=== PATIENT | male | born 1955 | race Two or more races ===

== ENCOUNTER 2019-04-16 22:29 | Emergency (ER) | payer OTHER ==
--- NOTE | 2019-04-16 23:08 | ED ---
Palpitations / Dysrhythmia - HPI Summary HPI Summary: 63-year-old male presents with palpitations today. He states he was sitting at his desk when he developed the symptoms. it was 10 minutes. He states at that time he had slight dizziness. He states he felt a weird feeling in his ears. Also has some weakness in his arms and leg. His symptoms has since resolved. Denies any chest pressures or shortness of breath. No headache. No dizziness currently. Has not been sick recently. No cough. States had intermittent palpitations before but it is never lasted this long. Does have a family history of arrhythmias. no recent travel. no pain or swelling in his calf muscles. He has no medical conditions. He does not smoke. No drug use. - History of Current Complaint Chief Complaint: EDDysrhythmPalp Time Seen by Provider: 04/16/19 22:44 - Allergy/Home Medications Allergies/Adverse Reactions: Allergies Allergy/AdvReac Type Severity Reaction Status Date / Time No Known Allergies Allergy Verified 04/16/19 22:32 Home Medications: Home Medications NK [No Home Medications Reported] 04/17/19 [History Confirmed 04/17/19] PMH/Surg Hx/FS Hx/Imm Hx Endocrine/Hematology History: Denies: Hx Diabetes Cardiovascular History: Denies: Hx Hypertension, Hx Pacemaker/ICD History: Denies: Hx Dialysis, Hx Renal Disease Sensory History: Denies: Hx Hearing Aid Psychiatric History: Denies: Hx Panic Disorder Infectious Disease History: No Infectious Disease History: Denies: Hx Clostridium Difficile, Hx Hepatitis, Hx Human Immunodeficiency Virus (HIV), Hx of Known/Suspected MRSA, Hx Shingles, Hx Tuberculosis, Hx Known/ Suspected VRE, Hx Known/Suspected VRSA, History Other Infectious Disease, Traveled Outside the [place] in Last 30 Days - Family History Known Family History: Positive: None - Social History Alcohol Use: Occasionally Substance Use Type: Reports: None Smoking Status (MU): Never Smoked Tobacco Review of Systems Negative: Fever Positive: Palpitations. Negative: Chest Pain Negative: Shortness Of Breath All Other Systems Reviewed And Are Negative: Yes Physical Exam Triage Information Reviewed: Yes Vital Signs On Initial Exam: Initial Vitals Temp Pulse Resp BP Pulse Ox 97.8 F 69 15 146/90 99 04/16/19 22:30 04/16/19 22:30 04/16/19 22:30 04/16/19 22:30 04/16/19 22:30 Vital Signs Reviewed: Yes Appearance: Positive: Well-Appearing Skin: Positive: Warm, Dry Head/Face: Positive: Normal Head/Face Inspection Eyes: Positive: Normal, EOMI, BERNARDINO, Conjunctiva Clear ENT: Positive: Normal ENT inspection, Pharynx normal, TMs normal Respiratory/Lung Sounds: Positive: Clear to Auscultation, Breath Sounds Present Cardiovascular: Positive: Normal, RRR Abdomen Description: Positive: Nontender, Soft Bowel Sounds: Positive: Present Musculoskeletal: Positive: Normal Neurological: Positive: Normal Psychiatric: Positive: Normal Procedures - Sedation Patient Received Moderate/Deep Sedation with Procedure: No Diagnostics - Vital Signs Vital Signs Temp Pulse Resp BP Pulse Ox 04/16/19 22:30 97.8 F 69 15 146/90 99 - Laboratory Result Diagrams: 04/16/19 23:25 04/16/19 23:25 Lab Statement: Any lab studies that have been ordered have been reviewed, and results considered in the medical decision making process. Re-Evaluation - Re-Evaluation First Eval Re-Evaluation Time: 00:50 Comment: discussed results with patient Course/Dx - Course Course Of Treatment: 63-year-old male presents with palpitations today. He states he was sitting at his desk when he developed the symptoms. it was 10 minutes. He states at that time he had slight dizziness. He states he felt a weird feeling in his ears. Also has some weakness in his arms and leg. His symptoms has since resolved. Denies any chest pressures or shortness of breath. No headache. No dizziness currently. Has not been sick recently. No cough. States had intermittent palpitations before but it is never lasted this long. Does have a family history of arrhythmias. no recent travel. no pain or swelling in his calf muscles. He has no medical conditions. He does not smoke. No drug use. On exam lungs CTA. heart regular rate and rhythm. EKG shows sinus rhythm. wbc normal. electrolytes normal. troponin zero. discussed no arrhythmia while in the ED. told follow up with primary. patient understand and agrees with plan. - Diagnoses Differential Diagnosis/HQI/PQRI: Positive: Coronary Artery Disease, Hypokalemia , Paroxymal SVT Provider Diagnoses: Palpitations Discharge ED - Sign-Out/Discharge Documenting (check all that apply): Patient Departure - Discharge Plan Condition: Good Disposition: HOME Patient Education Materials: Heart Palpitations (ED) Referrals: Micha Doty MD [Primary Care Provider] - Additional Instructions: follow up with primary within 5 days Return to ED if develop any new or worsening symptoms - Billing Disposition and Condition Condition: GOOD Disposition: Home - Attestation Statements Provider Attestation: I was available for consultation for this patient. I did not evaluate the patient or participate in any medical decision making or disposition decisions unless I am specifically named in the chart as having consulted on the patient. If I have consulted on the patient, please see my own ED note on the patient encounter. Sharad Gaviria MD
[2019-04-16 23:34] LABS: ABS Basophils 0.1 10^3/ul (0-0.2); ABS Eosinophils 0.3 10^3/ul (0-0.6); ABS Lymphocytes 1.9 10^3/ul (1.0-4.8); ABS Monocytes 0.5 10^3/ul (0-0.8); Eosinophil % 5.8 %; Hematocrit 42 % (42-52); Lymphocyte % 33.6 %; Mean Corpuscular HGB Conc 33 g/dL (31-36); Mean Corpuscular Hemoglobin 28 pg (27-31); Mean Corpuscular Volume 85 fL (80-94); Mean Platelet Volume 7.3 fL (7.4-10.4); Nucleated Red Blood Cells % 0.1; Platelet Count 232 10^3/uL (150-450); Red Blood Count 4.95 10^6 /uL (4.18-5.48); Red Cell Distribution Width 14 % (10-15); White Blood Count 5.8 10^3/uL (3.5-10.8)
[2019-04-16 23:53] LABS: Albumin 4.4 g/dL (3.2-5.2); Albumin/Globulin Ratio 1.6 (1-3); Calcium 9.5 mg/dL (8.6-10.3); EGFR African American 82.9 (>60); EGFR Non-African American 68.5 (>60); Globulin 2.8 g/dL (2-4); Magnesium 2.2 mg/dL (1.9-2.7); Potassium 4.3 mmol/L (3.5-5.0); Total Bilirubin 0.5 mg/dL (0.2-1.0); Total Protein 7.2 g/dL (6.4-8.9)
[2019-04-16 23:55] LABS: Troponin I 0.01 ng/mL (<0.03)
[2019-04-17 00:44] LABS: TSH (Thyroid Stimulating Horm) 3.31 mcIU/mL (0.34-5.60)
[2019-04-17 01:21] VITALS: BP 125/75
== END 2019-04-17 01:20 | disposition home or self-care (01) ==
LOC: ED 22:29
DX: R00.2 Palpitations (principal)
CPT/HCPCS: 36415; 80053; 83605; 83735; 84443; 84484; 85025; 93005; 99283